=== PATIENT | male | born 2000 | race Caucasian/White ===

== ENCOUNTER 2024-02-06 10:29 | Outpatient (CLI) | payer OTHER, MEDICAID, SELFPAY ==
--- NOTE | ~2024-02-06 | CT_ITS ---
Non-contrast CT scan of the Abdomen Clinical indication: Left upper quadrant pain/bulge Technique: 2.5 mm axial scans were obtained through the abdomen without intravenous or oral contrast . Dose reduction technique was used on this scan by utilizing automated exposure control and iterativ e reconstruction technique. The dose-length product (DLP) was 120.38 mGy-cm. Findings: Images through the lung bases reveal no abnormalities. Punctate nonobstructing right renal stones are present. No left renal stone. No hydronephrosis on eit her side. The liver, spleen, pancreas, gallbladder, and adrenals appear normal. There is no aortic aneurysm. Visualized bowel loops are unremarkable. No ascites. Impression: Punctate nonobstructing right renal stones. Reviewed, dictated and finalized at location . EN HANDLER Impression: Punctate nonobstructing right renal stones.
== END 2024-02-06 10:30 | disposition home or self-care (01) ==
LOC: MICIMG 10:29
PROVIDERS: PCP Surgery; Visit Provider Surgery
DX: N20.0 Calculus of kidney (principal)
CPT/HCPCS: 74150